=== PATIENT | male | born 2005 | race Two or more races ===

== ENCOUNTER 2024-06-07 13:10 | Emergency (ER) | payer BC, SELFPAY ==
[2024-06-07 13:11] VITALS: BMI 41.2
[2024-06-07 13:40] VITALS: BP 156/85; PULSE 82; RESP 18; TEMP 37.1; O2SAT 98; BMI 39.0
[2024-06-07] MEDS: ACETAMINOPHEN 500 MG TABLET 1000 MG PO (14:03)
[2024-06-07] MEDS: IBUPROFEN TAB 400 MG TABLET 800 MG PO (14:03)
--- NOTE | 2024-06-07 14:19 | EDNOTE_ITS ---
ED Headache RME/HPI General Chief Complaint: Headache Stated Complaint: FORHEAD AND NOSE HURT Time Seen by Provider: 06/07/24 13:28 Arrival date/time: 06/07/24 13:10 This is a 19-year-old male that complains of headache, congestion and runny nose. Patient complains also some sinus pressure. Patient denies any past medical history. Related Data Previous Rx's ?Medication ?Instructions ?Recorded diphenhydramine HCl 25 mg capsule 25 mg PO QID PRN all ergic reaction 07/20/19 (Benadryl) #30 caps epinephrine 0.3 mg/0.3 mL 0.3 mg (0.3 mL) subcut .x1 # 2 ea 07/20/19 injection, auto-injector ibuprofen 600 mg tablet 600 mg PO Q6HR #30 tabs 07/24 0 ibuprofen 800 mg tablet (IBU) 800 mg PO TID PRN fever or pain 08/11/23 #30 tabs ibuprofen 800 mg tablet 800 mg PO Q6H PRN pain #20 t abs 06/07/24 pseudoephedrine HCl 30 mg tablet 30 mg PO Q8HR PRN yulissa al congestion 06/07/24 (Sudafed) #20 tabs Allergies Allergy/AdvReac Type Severity Reaction Status Date / Time bee venom protein (honey bee) Allergy Verified 06/07/24 13:13 Review of Systems Review of Systems Systems Reviewed: All systems reviewed, normal except as documented Past Medical History Past Medical History CARDIAC: Negative Congestive Heart Failure RESPIRATORY: Negative Chronic Obstructive Pulmonary Disease (COPD) GENITOURINARY: Negative Renal Disease ENDOCRINE: Negative Diabetes Mellitus Type 1 or Diabetes Mellitus Type 2 Social History SMOKING STATUS: Never smoker ED Exam General General appearance: Present alert and in no apparent distress Head Head exam: Present atraumatic Eye Eye exam: Present normal appearance, PERRL and EOMI ENT ENT exam: Present normal exam, normal oropharynx and mucous membranes moist Neck Neck exam: Present normal inspection, full ROM and trachea midline Chest Chest inspection: Present normal inspection and symmetric chest wall rise Respiratory Respiratory exam: Present normal lung sounds bilaterally Cardiovascular Cardiovascular exam: Present regular rate Abdominal Exam Abdominal exam: Present soft Extremities Exam Extremities exam: Present normal inspection and full ROM Back Exam Back exam: Present normal inspection and full ROM Neurological Exam Neurological exam: Present alert, oriented X3 and CN II-XII intact Psychiatric Psychiatric exam: Present normal affect and normal mood Skin Skin exam: Present warm, dry, intact and normal color Course Quality Measures none Orders Category Date Time Status Bedside COVID-19 Antigen Test NOW Care 06/07/24 13:47 Completed Bedside Influenza A&B Antigen Test NOW Care 06/07/24 13:47 Completed Acetaminophen Tab [Tylenol ES Tab] Med 06/07/24 13:47 Discontinued 1,000 mg PO X1 ONE Ibuprofen Tab [Motrin Tab] Med 06/07/24 13:47 Discontinued 800 mg PO X1 ONE Vital Signs Vital signs: Vital Signs Temperature 98.7 F 06/07/24 13:40 Pulse Rate 82 06/07/24 13:40 Respiratory Rate 18 06/07/24 13:40 Blood Pressure 156/85 H 06/07/24 13:40 Pulse Oximetry (%) 98 06/07/24 13:40 Oxygen Delivery Method Room Air 06/07/24 13:40 Headache MDM Narrative MDM Narrative:: Influenza and COVID-negative. Patient given Tylenol ibuprofen for pain. Patient complains of sinus pressure and frontal and maxillary sinuses. Will send patient home with some ibuprofen and Sudafed to take to see if this will relieve sinus congestion. Patient told to follow-up with primary provider in 1 to 2 days. I explained to patient at length that typically this should get better with time but sometimes sinus congestion can turn into an infection. Patient told to follow-up with primary provider. Patient comfortable plan of care. Patient data External records reviewed:: [facility] previous records Clinical information provided by:: patient Social determinants that could affect healthcare access:: none Patient has the following chronic illnesses:: none How is presenting disease/condition affected by chronic disease/condition?: no chronic disease Evaluation data The following diagnostics were reviewed and interpreted by me:: lab results Lab and/or radiology exams considered but not ordered:: none Interpretation Summary: see note Medications / Prescriptions Medications or Prescriptions considered but not ordered:: none Medication administrations:: Medication Administration History Discontinued Medications Acetaminophen (Acetaminophen 500 Mg Tablet) 1,000 mg PO X1 ONE Stop: 06/07/24 13:48 Last Admin: 06/07/24 14:03 Dose: 1,000 mg Documented By: EO Ibuprofen (Ibuprofen Tab 400 Mg Tablet) 800 mg PO X1 ONE Stop: 06/07/24 13:48 Last Admin: 06/07/24 14:03 Dose: 800 mg Documented By: EO see note Consultations Consultation(s) initiated? (list below): No Diagnosis Differential diagnosis headache: migraine, tension headache, headache and sinusitis Most likely diagnosis given after review of the tests above:: uri Admission Indicated Admission indicated?: not indicated Admission Request Was there a request for admission?: No Disposition Plan Disposition Plan: Discharge Discharge Attestation Discharge Attestation: The patient and all family members were given an opportunity to ask questions and understood the discharge instructions. Discharge instructions specifically effects, indications for sooner follow up or return to the emergency department, and the expected course of current diagnosis. Patient condition: Stable Discharge Plan Plan Patient Disposition: HOME (Self Care) Patient condition on transfer: Stable Prescriptions/Referrals Prescriptions/Med Rec: New pseudoephedrine HCl [Sudafed] 30 mg tablet 30 mg PO Q8HR PRN (Reason: nasal congestion) Qty: 20 0RF ibuprofen 800 mg tablet 800 mg PO Q6H PRN (Reason: pain) Qty: 20 0RF No Action ibuprofen 600 mg tablet 600 mg PO Q6HR Qty: 30 0RF diphenhydramine HCl [Benadryl] 25 mg capsule 25 mg PO QID PRN (Reason: allergic reaction) Qty: 30 0RF epinephrine 0.3 mg/0.3 mL auto-injector 0.3 mg SC .x1 Qty: 2 0RF ibuprofen [IBU] 800 mg tablet 800 mg PO TID PRN (Reason: fever or pain) Qty: 30 0RF Referrals: Oleksandr Decker([facility])MD [Primary Care Provider] - In 1 week Problem List Clinical Impression: Headache, Nasal congestion, Sinus pressure, URI (upper respiratory infection) Patient/Caregiver Discharge Instructions Discharge Activity: activity as tolerated Education Materials: ED URI, Viral, No Abx (Adult) Additional Instructions: Follow-up with primary provider in 1 to 2 days. Come back to the emergency room if symptoms change or worsen. Print Language: Pashto Stand Alone Forms: Nasreen Award Info., Patient Portal Info Letter PA/MOLD LAMINATOR Supervising Physician ITZEL/MOLD LAMINATOR Supervising Physician: polo
== END 2024-06-07 15:20 | disposition home or self-care (01) ==
PROVIDERS: Emergency Provider Emergency Medicine; PCP Family Medicine
DX: J06.9 Acute upper respiratory infection, unspecified (principal)
CPT/HCPCS: 87400; 87811; 99283; A9270

== ENCOUNTER 2024-06-15 21:01 | Emergency (ER) | payer BC, SELFPAY ==
[2024-06-15 21:03] VITALS: BMI 41.2
[2024-06-15 21:52] VITALS: BP 137/86; PULSE 95; RESP 18; TEMP 36.8; O2SAT 96
--- NOTE | 2024-06-15 22:06 | PD.EDRME ---
Rapid Medical Screening Exam RME Arrival date/time: 06/15/24 21:01 19-year-old male presents emergency department complaining of laceration to right fourth digit plantar side that occurred earlier today from piece of metal that he had cut with a saw. Patient reports is up-to-date with tetanus vaccine. Chief Complaint: Extremity Injury, Upper Time Seen by Provider: 06/15/24 21:55 Vital signs: Vital Signs Temperature 98.3 F 06/15/24 21:52 Pulse Rate 95 06/15/24 21:52 Respiratory Rate 18 06/15/24 21:52 Blood Pressure 137/86 H 06/15/24 21:52 Pulse Oximetry (%) 96 06/15/24 21:52 Oxygen Delivery Method Room Air 06/15/24 21:52 Vital signs reviewed by provider: Yes
--- NOTE | 2024-06-15 22:07 | XR_ITS ---
Examination: Fingers, left hand fourth digit 3 views Technique: AP, oblique, lateral views left hand fourth digit 3 views. Exam date and time: June 17, 2024 1017 hrs. Indications: Laceration to the fourth digit today with pain and swelling Findings: No fracture No opaque foreign body No dislocation Impression: No opaque foreign body
[2024-06-15] MEDS: DIPHTH,PERTUSS(ACELL),TET VAC 0.5 ML SYR IMi (22:15)
[2024-06-15] MEDS: LIDOCAINE HCL 1% 20 ML VIAL INFL (22:19)
--- NOTE | 2024-06-16 00:56 | EDNOTE_ITS ---
<Statement entered by Faye Blanchard MD - 06/16/24 05:25> As co-signing physician, I was present and available for consult prn. I concur with the plan and care as documented by the midlevel provider. Upper Extremity Injury RME/HPI General Chief Complaint: Extremity Injury, Upper Stated Complaint: Left 4th digit laceration with metal at home Time Seen by Provider: 06/15/24 21:55 Source: patient Arrival date/time: 06/15/24 21:01 19-year-old male presents emergency department complaining of laceration to left fourth digit plantar side that occurred earlier today from piece of metal that had a cut with a saw. Patient reports unsure if is up-to-date with tetanus vaccine. Mode of arrival: ambulatory Limitations: no limitations RME / HPI RME / HPI narrative: 06/15/24 21:01 19-year-old male presents emergency department complaining of laceration to right fourth digit plantar side that occurred earlier today from piece of metal that he had cut with a saw. Patient reports is up-to-date with tetanus vaccine. Related Data Previous Rx's ?Medication ?Instructions ?Recorded diphenhydramine HCl 25 mg capsule 25 mg PO QID PRN all ergic reaction 07/20/19 (Benadryl) #30 caps epinephrine 0.3 mg/0.3 mL 0.3 mg (0.3 mL) subcut .x1 # 2 ea 07/20/19 injection, auto-injector ibuprofen 600 mg tablet 600 mg PO Q6HR #30 tabs 04/3 020 ibuprofen 800 mg tablet (IBU) 800 mg PO TID PRN fever or pain 08/11/23 #30 tabs ibuprofen 800 mg tablet 800 mg PO Q6H PRN pain #20 t abs 06/07/24 pseudoephedrine HCl 30 mg tablet 30 mg PO Q8HR PRN yulissa al congestion 06/07/24 (Sudafed) #20 tabs Allergies Allergy/AdvReac Type Severity Reaction Status Date / Time bee venom protein (honey bee) Allergy Verified 06/07/24 13:13 Review of Systems Review of Systems Systems Reviewed: All systems reviewed, normal except as documented Constitutional Constitutional: Reports system reviewed and no additional complaints, except as documented, Denies body ache(s), Denies chills and Denies fever(s) Eyes Eyes: Reports system reviewed and no additional complaints, except as documented and Denies change in vision ENT Ears, Nose, Mouth, and Throat: Reports system reviewed and no additional complaints, except as documented, Denies disequilibrium, Denies dizziness, Denies sore throat and Denies vertigo Cardiovascular Cardiovascular: Reports system reviewed and no additional complaints, except as documented, Denies chest pain and Denies dyspnea Respiratory Respiratory: Reports system reviewed and no additional complaints, except as documented, Denies chest congestion, Denies cough and Denies dyspnea Gastrointestinal Gastrointestinal: Reports system reviewed and no additional complaints, except as documented, Denies abdominal pain, Denies nausea and Denies vomiting Musculoskeletal Musculoskeletal: Reports system reviewed and no additional complaints, except as documented, Denies abnormal gait and Denies arthralgias Integumentary/Breasts Skin/Breast: Reports system reviewed and no additional complaints, except as documented, Denies erythema, Denies rash and Reports wounds Neurologic Neurologic: Reports system reviewed and no additional complaints, except as documented, Denies abnormal gait, Denies disequilibrium, Denies dizziness and Denies vertigo Past Medical History Past Medical History CARDIAC: Negative Congestive Heart Failure RESPIRATORY: Negative Chronic Obstructive Pulmonary Disease (COPD) GENITOURINARY: Negative Renal Disease ENDOCRINE: Negative Diabetes Mellitus Type 1 or Diabetes Mellitus Type 2 Social History SMOKING STATUS: Never smoker ED Exam General Limitations: Present no limitations General appearance: Present alert and in no apparent distress Head Head exam: Present atraumatic Eye Eye exam: Present normal appearance, PERRL and EOMI ENT ENT exam: Present normal exam, normal oropharynx and mucous membranes moist Neck Neck exam: Present normal inspection, full ROM and trachea midline Chest Chest inspection: Present normal inspection and symmetric chest wall rise Respiratory Respiratory exam: Present normal lung sounds bilaterally Cardiovascular Cardiovascular exam: Present regular rate, normal rhythm and normal heart sounds Abdominal Exam Abdominal exam: Present soft and normal bowel sounds Extremities Exam Extremities exam: Present normal inspection and full ROM Expanded Upper Extremity Exam Hand L/R front image: 2 1. laceration (Neurovascularly intact no tendon involvement) Back Exam Back exam: Present normal inspection and full ROM Neurological Exam Neurological exam: Present alert, oriented X3 and CN II-XII intact Psychiatric Psychiatric exam: Present normal affect and normal mood Skin Skin exam: Present warm, dry, intact and normal color Course Quality Measures none Orders Category Date Time Status Set Up Suture Tray STAT Care 02/23/25 22:08 Completed Wound Care [Wound Care] NOW Care 06/15/24 22:08 Completed XR finger LT min 2V Stat Exams 06/15/24 22:07 Completed Lidocaine 1% 20 ml [Xylocaine 1% 20 ML] Med 06/15/24 22:08 Discontinued 20 ml INFL X1 ONE Tet,Diphth,Pertuss(Acell)-Tdap [Boostrix Vacc] Med 06/15/24 22:08 Discontinued 0.5 ml IMI .ONCE ONE Vital Signs Vital signs: Vital Signs Temperature 98.3 F 06/15/24 21:52 Pulse Rate 95 06/15/24 21:52 Respiratory Rate 18 06/15/24 21:52 Blood Pressure 137/86 H 06/15/24 21:52 Pulse Oximetry (%) 96 06/15/24 21:52 Oxygen Delivery Method Room Air 06/15/24 21:52 96% room air within normal limits Procedures -ED Laceration Laceration 1: Site: other (Fourth digit) Side (If applicable): left Size (cm): 3 Description: linear Depth: simple, single layer Local Anesthetic: lidocaine 1% Amount of anesthesia used (mL): 0.5 Pre-repair: wound explored and irrigated extensively Skin layer closed with: nylon Size (cm): 5-0 Number of sutures: 5 Technique: simple, interrupted Extremity Injury MDM Narrative MDM Narrative:: 19-year-old male presents emergency department complaining of laceration to left fourth digit plantar side that occurred earlier today from piece of metal that had a cut with a saw. Patient reports is unsure if up-to-date with tetanus vaccine. Left fourth digit neurovascularly intact with no tendon involvement. X-ray of left fourth digit was unremarkable. Approximately 3 cm laceration to the left fourth digit irrigated extensively with copious amounts of normal saline verbal consent was obtained and using 1% lidocaine as local anesthetic wound approximated using 5-0 Ethilon 5 simple interrupted sutures patient tolerated well. Patient instructed to monitor for signs of infection may cleanse with warm water and soap and will need sutures removed in 7 to 10 days. Patient data External records reviewed:: [facility] previous records Clinical information provided by:: patient Social determinants that could affect healthcare access:: none Patient has the following chronic illnesses:: None How is presenting disease/condition affected by chronic disease/condition?: no chronic disease Evaluation data The following diagnostics were reviewed and interpreted by me:: radiology exam(s) Lab and/or radiology exams considered but not ordered:: Ordered Interpretation Summary: Interpreted by me Medications / Prescriptions Medications or Prescriptions considered but not ordered:: Ordered Medication administrations:: Medication Administration History Discontinued Medications Diphtheria/Tetanus/Acell Pertussis (Diphth,Pertuss(Acell),Tet Vac 0.5 Ml Syr) 0.5 ml IMi .ONCE ONE Stop: 06/15/24 22:09 Last Admin: 06/15/24 22:15 Dose: 0.5 ml Documented By: ERMELINDA Lidocaine HCl (Lidocaine Hcl 1% 20 Ml Vial) 20 ml INFL X1 ONE Stop: 06/15/24 22:09 Last Admin: 06/15/24 22:19 Dose: 20 ml Documented By: ERMELINDA Given Consultations Consultation(s) initiated? (list below): No Diagnosis Upper Extremity Injury Differential Diagnosis: finger sprain and dislocation of finger Most likely diagnosis given after review of the tests above:: Laceration of finger Admission Indicated Admission indicated?: not indicated Admission Request Was there a request for admission?: No Disposition Plan Disposition Plan: Discharge Discharge Attestation Discharge Attestation: The patient and all family members were given an opportunity to ask questions and understood the discharge instructions. Discharge instructions specifically effects, indications for sooner follow up or return to the emergency department, and the expected course of current diagnosis. Patient condition: Stable Discharge Plan Plan Patient Disposition: HOME (Self Care) Disposition Comment: Stable Prescriptions/Referrals Prescriptions/Med Rec: No Action ibuprofen 600 mg tablet 600 mg PO Q6HR Qty: 30 0RF diphenhydramine HCl [Benadryl] 25 mg capsule 25 mg PO QID PRN (Reason: allergic reaction) Qty: 30 0RF epinephrine 0.3 mg/0.3 mL auto-injector 0.3 mg SC .x1 Qty: 2 0RF ibuprofen [IBU] 800 mg tablet 800 mg PO TID PRN (Reason: fever or pain) Qty: 30 0RF pseudoephedrine HCl [Sudafed] 30 mg tablet 30 mg PO Q8HR PRN (Reason: nasal congestion) Qty: 20 0RF ibuprofen 800 mg tablet 800 mg PO Q6H PRN (Reason: pain) Qty: 20 0RF Referrals: No Primary/Family,Physician [Primary Care Provider] - In 1 week Problem List Clinical Impression: Laceration of finger Patient/Caregiver Discharge Instructions Discharge Activity: activity as tolerated Education Materials: ED Laceration: All Closures Additional Instructions: Keep dressing on for the first 24 hours due to bleeding. After 24 hours take off dressing and may wash with warm water and soap. Keep clean and dry. Return to emergency department or primary care provider's office in 7 to 10 days for suture removal. Return immediately to emergency department for any signs of infection worsening symptoms or as needed. Print Language: Qatari Stand Alone Forms: Nasreen Award Info., Patient Portal Info Letter PA/ELECTRIC FRYING PAN REPAIRER Supervising Physician PA/ELECTRIC FRYING PAN REPAIRER Supervising Physician: Dr. Blanchard
== END 2024-06-16 01:05 | disposition home or self-care (01) ==
PROVIDERS: Emergency Provider Emergency Medicine
DX: S61.215A Laceration without foreign body of left ring finger without damage to nail, initial encounter (principal); W27.0XXA Contact with workbench tool, initial encounter; Z23 Encounter for immunization
CPT/HCPCS: 12002; 73140; 90471; 90715; 99283; J3490